=== PATIENT | female | born 2000 | race Caucasian/White ===

== ENCOUNTER 2019-11-05 09:09 | Emergency (ER) | payer OTHER ==
--- NOTE | 2019-11-05 10:40 | EDM.PDOC ---
ED HPI GENERAL MEDICAL PROBLEM - General Chief Complaint: Lower Extremity Injury/Pain Stated Complaint: LEFT KNEE [id number] Time Seen by Provider: 11/05/19 09:23 Source of Information: Reports: Patient, RN History Limitations: Reports: No Limitations - History of Present Illness INITIAL COMMENTS - FREE TEXT/NARRATIVE: 19 year old female who presents to the clinic with complaint of a left knee pain x 1 hours ago. Patient reports sprinting during drill and hear her left knee "pop". She was able to finished the exercise before coming into the ER for evaluations. She describes pain as a discomfort.Has not tried anything for it. She reports a left knee sprain two months ago. Left Knee Pain Score (Numeric/FACES): 5 - Related Data Allergies Allergy/AdvReac Type Severity Reaction Status Date / Time No Known Allergies Allergy Verified 11/05/19 09:20 Home Meds: Home Meds Ethinyl Estradiol/Drospirenone [Stefani 28 Tablet] 1 tab PO DAILY 11/05/19 [History] Past Medical History HEENT History: Reports: None Cardiovascular History: Reports: None Respiratory History: Reports: None Gastrointestinal History: Reports: None Genitourinary History: Reports: None [employer] History: Reports: None Neurological History: Reports: None Psychiatric History: Reports: None Endocrine/Metabolic History: Reports: None Hematologic History: Reports: None Immunologic History: Reports: None Oncologic (Cancer) History: Reports: None Dermatologic History: Reports: None - Infectious Disease History Infectious Disease History: Reports: None - Past Surgical History Head Surgeries/Procedures: Reports: None Musculoskeletal Surgical History: Reports: Other (See Below) Other Musculoskeletal Surgeries/Procedures:: right wirst to remove extra tendon , Right knee repain ACL and meniscus Social & Family History - Family History Family Medical History: Noncontributory - Tobacco Use Smoking Status *Q: Never Smoker Second Hand Smoke Exposure: No - Caffeine Use Caffeine Use: Reports: None - Recreational Drug Use Recreational Drug Use: No Review of Systems - Review of Systems Review Of Systems: Comprehensive ROS is negative, except as noted in HPI. ED EXAM, GENERAL - Physical Exam Exam: See Below Exam Limited By: No Limitations General Appearance: Alert, Mild Distress Respiratory/Chest: No Respiratory Distress, Lungs Clear, Normal Breath Sounds, No Accessory Muscle Use, Chest Non-Tender Cardiovascular: Normal Peripheral Pulses, Regular Rate, Rhythm, No Edema, No Gallop, No JVD, No Murmur, No Rub Extremities: Normal Inspection (left), Normal Range of Motion, Non-Tender ( discomfort reported with palpation of the medial aspect of the left knee. Negative posterior and anterior drawer test. Valgus and varus maneurs negative. ), No Pedal Edema, Normal Capillary Refill, Other Neurological: Alert, Oriented, Normal Gait, Normal Reflexes Psychiatric: Normal Affect, Normal Mood Skin Exam: Warm, Intact, Normal Color Lymphatic: No Adenopathy Course - Vital Signs Last Recorded V/S: Last Vital Signs Temp 97.8 F 11/05/19 09:20 Pulse 90 11/05/19 09:20 Resp 16 11/05/19 09:20 BP 112/71 11/05/19 09:20 Pulse Ox 100 11/05/19 09:20 - Orders/Labs/Meds Orders: Active Orders 24 hr Category Date Time Status Knee 3V Lt [CR] Urgent Exams 11/05/19 09:23 Taken - Radiology Interpretation Free Text/Narrative:: PROCEDURE INFORMATION: Exam: XR Left Knee Exam date and time: 11/05/2019 9:41 AM Age: 19 years old Clinical indication: Pain; Knee; Left; Additional info: [place] left knee pop and buckled, pain medial knee TECHNIQUE: Imaging protocol: XR Left knee. Views: 3 views. COMPARISON: No relevant prior studies available. FINDINGS: Bones/joints: There is no fracture or dislocation. There is no significant narrowing of the joint compartments. No significant osteophytes are appreciated. Soft tissues: Normal. IMPRESSION: No acute findings Thank you for allowing us to participate in the care of your patient. - Re-Assessments/Exams Free Text/Narrative Re-Assessment/Exam: Review Knee Xray results with patient. paperwork for the training signed and returned to patient. Instructions included in the AVS. Follow up with PCP. Patient verbalized understanding. Departure - Departure Time of Disposition: 10:33 Disposition: Home, Self-Care 01 Condition: Good Clinical Impression: Left knee sprain Qualifiers: Encounter type: initial encounter Involved ligament of knee: medial collateral ligament Qualified Code(s): S83.412A - Sprain of medial collateral ligament of left knee, initial encounter - Discharge Information *PRESCRIPTION DRUG MONITORING PROGRAM REVIEWED*: Not Applicable *COPY OF PRESCRIPTION DRUG MONITORING REPORT IN PATIENT FLACO: Not Applicable Instructions: Knee Sprain, Adult, [id number] Referrals: PCP,Not In Area [Primary Care Provider] - Additional Instructions: Applied a knee brace/sleeve during the day and off at night. ice every 20 minutes/hour while awake. Tylenol/ibuprofen for discomfort. Follow up with PCP if symptoms worsens. Sepsis Event Note - Evaluation Sepsis Screening Result: No Definite Risk - Focused Exam Vital Signs: Vital Signs Temp Pulse Resp BP Pulse Ox 11/05/19 09:20 97.8 F 90 16 112/71 100 Date Exam was Performed: 11/05/19 Time Exam was Performed: 10:32 - My Orders Last 24 Hours: My Active Orders 11/05/19 09:23 Knee 3V Lt [CR] Urgent - Assessment/Plan Last 24 Hours: My Active Orders 11/05/19 09:23 Knee 3V Lt [CR] Urgent
== END 2019-11-05 10:38 | disposition home or self-care (01) ==
LOC: DL.ED 09:09
DX: S83.412A Sprain of medial collateral ligament of left knee, initial encounter (principal); X50.9XXA Other and unspecified overexertion or strenuous movements or postures, initial encounter; Y93.89 Activity, other specified
CPT/HCPCS: 73562-LT; 99282; 99283-25